=== PATIENT | female | born 1955 | race Caucasian/White ===

== ENCOUNTER 2017-10-28 12:40 | Outpatient (CLI) | payer MEDICAID, SELFPAY ==
[2017-10-28 13:23] LABS: Abs Immature Grans 0.03 k/cumm (0.0-0.09); Absolute Basophil Count 0.01 k/cumm (0.0-0.2); Absolute Lymphocyte Count 0.26 k/cumm (1.2-3.4); Absolute Monocyte Count 0.09 k/cumm (0.11-0.7); Absolute Neutrophil Count 5.38 k/cumm (1.2-6.7); Basophils % 0.2; HCT 40.6 % (36.0-46.0); HGB 12.9 g/dL (12.0-15.5); Immature Grans % 0.5; Lymphocytes % 4.5; Mean Corp. HGB Concentration 31.8 g/dL (32.0-36.0); Mean Corpuscular Hemoglobin 31.9 pg (27.0-33.0); Mean Corpuscular Volume 100.5 fL (80-95); Mean Platelet Volume 9.2 fL (8.0-11.0); Monocytes % 1.6; Neutrophils % 93.2; Platelet Count 137 x1000/uL (130-400); RBC 4.04 m/cumm (4.00-5.20); RBC Distribution Width 15.5 % (11.7-14.6); White Blood Cell Count 5.77 k/cumm (4.4-10.8)
[2017-10-28 13:36] LABS: ALT 42 U/L (12-78); AST 17 U/L (15-37); Albumin 3.7 g/dL (3.4-5.0); Alkaline Phosphatase 99 U/L (46-116); Anion Gap 5.5 mmol/L (3-11); BUN 17 mg/dL (7-18); Bilirubin, Total 0.6 mg/dL (0.2-1.0); CO2 28.5 mmol/L (21.0-32.0); CREATININE 0.82 mg/dL (0.55-1.02); Calcium 9.2 mg/dL (8.5-10.1); Chloride 104 mmol/L (98-107); Glucose 154 mg/dL (70-100); LDH 167 U/L (81-234); Potassium 4.3 mmol/L (3.5-5.1); Sodium 138 mmol/L (136-145); Total Protein 6.9 g/dL (6.4-8.2)
== END 2017-10-28 12:41 ==
PROVIDERS: PCP Family Medicine; Visit Provider Internal Medicine Hematology & Oncology
DX: D59.5 Paroxysmal nocturnal hemoglobinuria [Marchiafava-Micheli] (principal); M17.10 Unilateral primary osteoarthritis, unspecified knee
CPT/HCPCS: 36415; 80053; 83615; 85025; 85045

== ENCOUNTER 2017-11-25 12:35 | Outpatient (CLI) | payer MEDICAID, SELFPAY ==
[2017-11-25 13:23] LABS: Abs Immature Grans 0.03 k/cumm (0.0-0.09); Absolute Basophil Count 0.02 k/cumm (0.0-0.2); Absolute Eosinophil Count 0.01 k/cumm (0.0-0.7); Absolute Lymphocyte Count 0.33 k/cumm (1.2-3.4); Absolute Monocyte Count 0.24 k/cumm (0.11-0.7); Absolute Neutrophil Count 6.49 k/cumm (1.2-6.7); Basophils % 0.3; Eosinophils % 0.1; HCT 39.1 % (36.0-46.0); Immature Grans % 0.4; Lymphocytes % 4.6; Mean Corp. HGB Concentration 33.2 g/dL (32.0-36.0); Mean Corpuscular Hemoglobin 33.7 pg (27.0-33.0); Mean Corpuscular Volume 101.3 fL (80-95); Monocytes % 3.4; Neutrophils % 91.2; Platelet Count 124 x1000/uL (130-400); RBC 3.86 m/cumm (4.00-5.20); RBC Distribution Width 15.9 % (11.7-14.6); Reticulocyte 2.8 % (0.5-2.4); White Blood Cell Count 7.12 k/cumm (4.4-10.8)
[2017-11-25 13:31] LABS: ALT 22 U/L (12-78); AST 15 U/L (15-37); Albumin 3.7 g/dL (3.4-5.0); Alkaline Phosphatase 88 U/L (46-116); BUN 15 mg/dL (7-18); Bilirubin, Total 0.9 mg/dL (0.2-1.0); CREATININE 0.87 mg/dL (0.55-1.02); Calcium 9.2 mg/dL (8.5-10.1); Chloride 103 mmol/L (98-107); Glucose 167 mg/dL (70-100); LDH 249 U/L (81-234); Potassium 4.1 mmol/L (3.5-5.1); Sodium 140 mmol/L (136-145); Total Protein 6.9 g/dL (6.4-8.2)
[2017-11-25 14:32] LABS: Magnesium 1.9 mg/dL (1.8-2.4)
== END 2017-11-25 12:55 ==
PROVIDERS: PCP Family Medicine; Visit Provider Internal Medicine Hematology & Oncology
DX: D59.5 Paroxysmal nocturnal hemoglobinuria [Marchiafava-Micheli] (principal); M17.10 Unilateral primary osteoarthritis, unspecified knee
CPT/HCPCS: 36415; 80053; 83615; 83735; 85025; 85045

== ENCOUNTER 2018-01-06 12:32 | Outpatient (CLI) | payer MEDICAID, SELFPAY ==
[2018-01-06 13:10] LABS: Abs Immature Grans 0.01 k/cumm (0.0-0.09); Absolute Basophil Count 0.01 k/cumm (0.0-0.2); Absolute Eosinophil Count 0.01 k/cumm (0.0-0.7); Absolute Lymphocyte Count 0.51 k/cumm (1.2-3.4); Absolute Monocyte Count 0.12 k/cumm (0.11-0.7); Absolute Neutrophil Count 3.14 k/cumm (1.2-6.7); Basophils % 0.3; Eosinophils % 0.3; HCT 39.5 % (36.0-46.0); HGB 12.6 g/dL (12.0-15.5); Immature Grans % 0.3; Lymphocytes % 13.4; Mean Corp. HGB Concentration 31.9 g/dL (32.0-36.0); Mean Corpuscular Hemoglobin 34.7 pg (27.0-33.0); Mean Corpuscular Volume 108.8 fL (80-95); Mean Platelet Volume 9.6 fL (8.0-11.0); Monocytes % 3.2; Neutrophils % 82.5; RBC 3.63 m/cumm (4.00-5.20); RBC Distribution Width 17.8 % (11.7-14.6); Reticulocyte 5.3 % (0.5-2.4)
[2018-01-06 13:11] LABS: ALT 38 U/L (12-78); AST 15 U/L (15-37); Albumin 3.6 g/dL (3.4-5.0); Alkaline Phosphatase 135 U/L (46-116); Anion Gap 9.3 mmol/L (3-11); BUN 14 mg/dL (7-18); Bilirubin, Total 0.8 mg/dL (0.2-1.0); CO2 28.7 mmol/L (21.0-32.0); CREATININE 0.99 mg/dL (0.55-1.02); Calcium 9.6 mg/dL (8.5-10.1); Chloride 103 mmol/L (98-107); Estimated GFR 56.84 (mL/min/1.73m2); Glucose 128 mg/dL (70-100); LDH 293 U/L (81-234); Potassium 3.3 mmol/L (3.5-5.1); Sodium 141 mmol/L (136-145); Total Protein 7.1 g/dL (6.4-8.2)
[2018-01-06 13:28] LABS: Platelet Count 86 x1000/uL (130-400)
[2018-01-06 13:29] LABS: Diff Comment Diff Reviewed; Macrocytosis 2+; Polychromasia Present
== END 2018-01-06 12:52 ==
PROVIDERS: PCP Family Medicine; Visit Provider Internal Medicine Hematology & Oncology
DX: D59.5 Paroxysmal nocturnal hemoglobinuria [Marchiafava-Micheli] (principal); M17.10 Unilateral primary osteoarthritis, unspecified knee
CPT/HCPCS: 80053; 83615; 85025; 85045

== ENCOUNTER 2018-01-20 00:56 | Outpatient (CLI) | payer MEDICAID, SELFPAY ==
--- NOTE | 2018-01-20 13:00 | DI.DEXA_ITS ---
SYMPTOMS/DIAGNOSIS: ALF USE OF SYSTEMS STEROID, Z79.52, H/O BROKEN WRIST DEXA SCAN: DEXA scan was performed according to the usual protocol. Mild T 12 anterior compression fracture noted as seen on previous lateral scanogram of 06/03/12 and minimal wedging of T 11 may be present as well, this is a questionable finding. Left hip scanning shows T score -1.7 with left femoral neck T score -1.7 as well. The previous examination of May 2012 showed left hip T score 0. Lumbar spine T score is -1.2, compared to +1.0 in May 2012. Right forearm scanning shows T score 1.5, previous examination of 2012 showed forearm T score 2.6. CONCLUSION: Findings consistent with osteopenia. Essentially unchanged T 12 vertebral compression fracture. Question minimal new T 11 compression fracture.
== END 2018-01-20 01:16 ==
PROVIDERS: PCP Family Medicine; Visit Provider Internal Medicine
DX: M85.88 Other specified disorders of bone density and structure, other site (principal); Z79.52 Long term (current) use of systemic steroids; M48.54XD Collapsed vertebra, not elsewhere classified, thoracic region, subsequent encounter for fracture with routine healing
CPT/HCPCS: 77080

== ENCOUNTER 2018-03-17 12:52 | Outpatient (CLI) | payer MEDICAID, SELFPAY ==
[2018-03-17 13:22] LABS: Abs Immature Grans 0.01 k/cumm (0.0-0.09); Absolute Basophil Count 0.02 k/cumm (0.0-0.2); Absolute Lymphocyte Count 0.36 k/cumm (1.2-3.4); Absolute Neutrophil Count 4.59 k/cumm (1.2-6.7); Basophils % 0.4; HCT 41.8 % (36.0-46.0); HGB 13.4 g/dL (12.0-15.5); Immature Grans % 0.2; Lymphocytes % 6.9; Mean Corp. HGB Concentration 32.1 g/dL (32.0-36.0); Mean Corpuscular Hemoglobin 33.4 pg (27.0-33.0); Mean Corpuscular Volume 104.2 fL (80-95); Mean Platelet Volume 9.3 fL (8.0-11.0); Monocytes % 3.9; Neutrophils % 88.6; Platelet Count 103 x1000/uL (130-400); RBC 4.01 m/cumm (4.00-5.20); RBC Distribution Width 12.7 % (11.7-14.6); Reticulocyte 2.2 % (0.5-2.4); White Blood Cell Count 5.18 k/cumm (4.4-10.8)
[2018-03-17 13:34] LABS: ALT 26 U/L (12-78); AST 21 U/L (15-37); Alkaline Phosphatase 71 U/L (46-116); Anion Gap 7.1 mmol/L (3-11); BUN 12 mg/dL (7-18); CO2 29.9 mmol/L (21.0-32.0); CREATININE 1.12 mg/dL (0.55-1.02); Calcium 9.8 mg/dL (8.5-10.1); Chloride 102 mmol/L (98-107); Estimated GFR 49.29 (mL/min/1.73m2); Glucose 171 mg/dL (70-100); LDH 256 U/L (81-234); Potassium 3.8 mmol/L (3.5-5.1); Sodium 139 mmol/L (136-145); Total Protein 7.2 g/dL (6.4-8.2)
== END 2018-03-17 13:12 ==
PROVIDERS: PCP Family Medicine; Visit Provider Internal Medicine Hematology & Oncology
DX: D59.5 Paroxysmal nocturnal hemoglobinuria [Marchiafava-Micheli] (principal); M17.10 Unilateral primary osteoarthritis, unspecified knee
CPT/HCPCS: 80053; 83615; 85025; 85045

== ENCOUNTER 2018-04-14 12:39 | Outpatient (CLI) | payer MEDICAID, SELFPAY ==
[2018-04-14 13:13] LABS: Abs Immature Grans 0.02 k/cumm (0.0-0.09); Absolute Basophil Count 0.02 k/cumm (0.0-0.2); Absolute Eosinophil Count 0.01 k/cumm (0.0-0.7); Absolute Lymphocyte Count 0.47 k/cumm (1.2-3.4); Absolute Monocyte Count 0.32 k/cumm (0.11-0.7); Absolute Neutrophil Count 5.03 k/cumm (1.2-6.7); Basophils % 0.3; Eosinophils % 0.2; HCT 41.1 % (36.0-46.0); HGB 13.1 g/dL (12.0-15.5); Immature Grans % 0.3; Mean Corp. HGB Concentration 31.9 g/dL (32.0-36.0); Mean Corpuscular Volume 103.5 fL (80-95); Mean Platelet Volume 9.3 fL (8.0-11.0); Monocytes % 5.5; Neutrophils % 85.7; Platelet Count 130 x1000/uL (130-400); RBC 3.97 m/cumm (4.00-5.20); RBC Distribution Width 12.9 % (11.7-14.6); Reticulocyte 2.1 % (0.5-2.4); White Blood Cell Count 5.87 k/cumm (4.4-10.8)
[2018-04-14 13:21] LABS: ALT 23 U/L (12-78); AST 21 U/L (15-37); Albumin 3.9 g/dL (3.4-5.0); Alkaline Phosphatase 77 U/L (46-116); Anion Gap 6.1 mmol/L (3-11); BUN 12 mg/dL (7-18); CO2 30.9 mmol/L (21.0-32.0); CREATININE 0.89 mg/dL (0.55-1.02); Calcium 9.6 mg/dL (8.5-10.1); Chloride 103 mmol/L (98-107); Glucose 104 mg/dL (70-100); LDH 228 U/L (81-234); Potassium 3.9 mmol/L (3.5-5.1); Sodium 140 mmol/L (136-145); Total Protein 7.3 g/dL (6.4-8.2)
== END 2018-04-14 12:59 ==
PROVIDERS: PCP Family Medicine; Visit Provider Internal Medicine Hematology & Oncology
DX: D59.5 Paroxysmal nocturnal hemoglobinuria [Marchiafava-Micheli] (principal); M17.10 Unilateral primary osteoarthritis, unspecified knee
CPT/HCPCS: 36415; 80053; 83615; 85025; 85045

== ENCOUNTER 2018-05-12 12:42 | Outpatient (CLI) | payer MEDICAID, SELFPAY ==
[2018-05-12 13:02] LABS: Abs Immature Grans 0.01 k/cumm (0.0-0.09); Absolute Basophil Count 0.03 k/cumm (0.0-0.2); Absolute Eosinophil Count 0.01 k/cumm (0.0-0.7); Absolute Lymphocyte Count 0.63 k/cumm (1.2-3.4); Absolute Monocyte Count 0.27 k/cumm (0.11-0.7); Absolute Neutrophil Count 5.08 k/cumm (1.2-6.7); Basophils % 0.5; Eosinophils % 0.2; HCT 41.2 % (36.0-46.0); HGB 13.1 g/dL (12.0-15.5); Immature Grans % 0.2; Lymphocytes % 10.4; Mean Corp. HGB Concentration 31.8 g/dL (32.0-36.0); Mean Corpuscular Hemoglobin 32.8 pg (27.0-33.0); Mean Platelet Volume 9.2 fL (8.0-11.0); Monocytes % 4.5; Neutrophils % 84.2; Platelet Count 126 x1000/uL (130-400); RBC Distribution Width 13.6 % (11.7-14.6); Reticulocyte 2.4 % (0.5-2.4); White Blood Cell Count 6.03 k/cumm (4.4-10.8)
[2018-05-12 13:12] LABS: ALT 21 U/L (12-78); AST 16 U/L (15-37); Albumin 4.2 g/dL (3.4-5.0); Alkaline Phosphatase 80 U/L (46-116); Anion Gap 8.6 mmol/L (3-11); BUN 17 mg/dL (7-18); Bilirubin, Total 0.8 mg/dL (0.2-1.0); CO2 29.4 mmol/L (21.0-32.0); CREATININE 0.88 mg/dL (0.55-1.02); Calcium 9.7 mg/dL (8.5-10.1); Chloride 104 mmol/L (98-107); Glucose 112 mg/dL (70-100); LDH 202 U/L (81-234); Potassium 4.1 mmol/L (3.5-5.1); Sodium 142 mmol/L (136-145); Total Protein 7.3 g/dL (6.4-8.2)
== END 2018-05-12 13:02 ==
PROVIDERS: PCP Family Medicine; Visit Provider Internal Medicine Hematology & Oncology
DX: D59.5 Paroxysmal nocturnal hemoglobinuria [Marchiafava-Micheli] (principal); M17.10 Unilateral primary osteoarthritis, unspecified knee
CPT/HCPCS: 36415; 80053; 83615; 85025; 85045

== ENCOUNTER 2018-06-09 12:38 | Outpatient (CLI) | payer MEDICAID, SELFPAY ==
[2018-06-09 13:43] LABS: ALT 24 U/L (12-78); AST 14 U/L (15-37); Albumin 4.2 g/dL (3.4-5.0); Alkaline Phosphatase 92 U/L (46-116); Anion Gap 10.2 mmol/L (3-11); BUN 14 mg/dL (7-18); Bilirubin, Total 0.7 mg/dL (0.2-1.0); CO2 26.8 mmol/L (21.0-32.0); CREATININE 0.85 mg/dL (0.55-1.02); Calcium 9.9 mg/dL (8.5-10.1); Chloride 104 mmol/L (98-107); Glucose 108 mg/dL (70-100); LDH 242 U/L (81-234); Magnesium 1.8 mg/dL (1.8-2.4); Potassium 4.1 mmol/L (3.5-5.1); Sodium 141 mmol/L (136-145); Total Protein 7.4 g/dL (6.4-8.2)
[2018-06-09 13:49] LABS: Abs Immature Grans 0.01 k/cumm (0.0-0.09); Absolute Basophil Count 0.01 k/cumm (0.0-0.2); Absolute Eosinophil Count 0.01 k/cumm (0.0-0.7); Absolute Lymphocyte Count 0.36 k/cumm (1.2-3.4); Absolute Monocyte Count 0.27 k/cumm (0.11-0.7); Absolute Neutrophil Count 4.89 k/cumm (1.2-6.7); Basophils % 0.2; Eosinophils % 0.2; HCT 39.6 % (36.0-46.0); HGB 12.6 g/dL (12.0-15.5); Immature Grans % 0.2; Lymphocytes % 6.5; Mean Corp. HGB Concentration 31.8 g/dL (32.0-36.0); Mean Corpuscular Hemoglobin 32.8 pg (27.0-33.0); Mean Corpuscular Volume 103.1 fL (80-95); Mean Platelet Volume 9.6 fL (8.0-11.0); Monocytes % 4.9; Platelet Count 135 x1000/uL (130-400); RBC 3.84 m/cumm (4.00-5.20); RBC Distribution Width 13.7 % (11.7-14.6); Reticulocyte 2.6 % (0.5-2.4); White Blood Cell Count 5.55 k/cumm (4.4-10.8)
== END 2018-06-09 12:58 ==
PROVIDERS: PCP Family Medicine; Visit Provider Internal Medicine Hematology & Oncology
DX: D59.5 Paroxysmal nocturnal hemoglobinuria [Marchiafava-Micheli] (principal); M17.10 Unilateral primary osteoarthritis, unspecified knee
CPT/HCPCS: 36415; 80053; 88184; 88185; 88188; 83615; 83735; 85025; 85045

== ENCOUNTER 2018-07-07 12:39 | Outpatient (CLI) | payer MEDICAID, SELFPAY ==
[2018-07-07 13:31] LABS: Abs Immature Grans 0.01 k/cumm (0.0-0.09); Absolute Basophil Count 0.02 k/cumm (0.0-0.2); Absolute Lymphocyte Count 0.45 k/cumm (1.2-3.4); Absolute Monocyte Count 0.28 k/cumm (0.11-0.7); Absolute Neutrophil Count 5.25 k/cumm (1.2-6.7); Basophils % 0.3; HCT 39.7 % (36.0-46.0); HGB 13.1 g/dL (12.0-15.5); Immature Grans % 0.2; Lymphocytes % 7.5; Mean Corpuscular Hemoglobin 33.2 pg (27.0-33.0); Mean Corpuscular Volume 100.8 fL (80-95); Mean Platelet Volume 9.3 fL (8.0-11.0); Monocytes % 4.7; Neutrophils % 87.3; Platelet Count 132 x1000/uL (130-400); RBC 3.94 m/cumm (4.00-5.20); RBC Distribution Width 13.4 % (11.7-14.6); Reticulocyte 2.6 % (0.5-2.4); White Blood Cell Count 6.01 k/cumm (4.4-10.8)
[2018-07-07 13:44] LABS: ALT 27 U/L (12-78); AST 17 U/L (15-37); Albumin 3.9 g/dL (3.4-5.0); Alkaline Phosphatase 92 U/L (46-116); Anion Gap 7.4 mmol/L (3-11); BUN 15 mg/dL (7-18); Bilirubin, Total 0.7 mg/dL (0.2-1.0); CO2 28.6 mmol/L (21.0-32.0); CREATININE 1.01 mg/dL (0.55-1.02); Calcium 9.5 mg/dL (8.5-10.1); Chloride 104 mmol/L (98-107); Estimated GFR 55.54 (mL/min/1.73m2); Glucose 105 mg/dL (70-100); LDH 198 U/L (81-234); Potassium 4.1 mmol/L (3.5-5.1); Sodium 140 mmol/L (136-145)
== END 2018-07-07 12:59 ==
PROVIDERS: PCP Family Medicine; Visit Provider Internal Medicine Hematology & Oncology
DX: D59.5 Paroxysmal nocturnal hemoglobinuria [Marchiafava-Micheli] (principal); M17.10 Unilateral primary osteoarthritis, unspecified knee
CPT/HCPCS: 80053; 88184; 88185; 88188; 83615; 83735; 85025; 85045

== ENCOUNTER 2018-08-18 12:27 | Outpatient (CLI) | payer MEDICAID, SELFPAY ==
[2018-08-18 12:46] LABS: Abs Immature Grans 0.02 k/cumm (0.0-0.09); Absolute Basophil Count 0.01 k/cumm (0.0-0.2); Absolute Eosinophil Count 0.01 k/cumm (0.0-0.7); Absolute Lymphocyte Count 0.56 k/cumm (1.2-3.4); Absolute Monocyte Count 0.33 k/cumm (0.11-0.7); Absolute Neutrophil Count 5.69 k/cumm (1.2-6.7); Basophils % 0.2; Eosinophils % 0.2; HGB 13.6 g/dL (12.0-15.5); Immature Grans % 0.3; Lymphocytes % 8.5; Mean Corp. HGB Concentration 32.4 g/dL (32.0-36.0); Mean Corpuscular Hemoglobin 33.3 pg (27.0-33.0); Mean Corpuscular Volume 102.7 fL (80-95); Mean Platelet Volume 8.9 fL (8.0-11.0); Neutrophils % 85.8; Platelet Count 137 x1000/uL (130-400); RBC 4.09 m/cumm (4.00-5.20); RBC Distribution Width 13.8 % (11.7-14.6); White Blood Cell Count 6.62 k/cumm (4.4-10.8)
[2018-08-18 13:00] LABS: ALT 33 U/L (12-78); AST 19 U/L (15-37); Albumin 3.8 g/dL (3.4-5.0); Alkaline Phosphatase 101 U/L (46-116); Anion Gap 8.1 mmol/L (3-11); BUN 13 mg/dL (7-18); Bilirubin, Total 0.7 mg/dL (0.2-1.0); CO2 29.9 mmol/L (21.0-32.0); CREATININE 0.93 mg/dL (0.55-1.02); Calcium 9.7 mg/dL (8.5-10.1); Chloride 102 mmol/L (98-107); Glucose 115 mg/dL (70-100); LDH 204 U/L (81-234); Potassium 4.2 mmol/L (3.5-5.1); Sodium 140 mmol/L (136-145); Total Protein 7.3 g/dL (6.4-8.2)
== END 2018-08-18 12:47 ==
PROVIDERS: PCP Family Medicine; Visit Provider Internal Medicine Hematology & Oncology
DX: D59.5 Paroxysmal nocturnal hemoglobinuria [Marchiafava-Micheli] (principal)
CPT/HCPCS: 36415; 80053; 83615; 85025

== ENCOUNTER 2018-09-15 12:29 | Outpatient (CLI) | payer MEDICAID, SELFPAY ==
[2018-09-15 13:02] LABS: Abs Immature Grans 0.02 k/cumm (0.0-0.09); Absolute Basophil Count 0.04 k/cumm (0.0-0.2); Absolute Eosinophil Count 0.03 k/cumm (0.0-0.7); Absolute Lymphocyte Count 0.62 k/cumm (1.2-3.4); Absolute Monocyte Count 0.33 k/cumm (0.11-0.7); Absolute Neutrophil Count 8.08 k/cumm (1.2-6.7); Basophils % 0.4; Eosinophils % 0.3; HCT 40.7 % (36.0-46.0); HGB 13.3 g/dL (12.0-15.5); Immature Grans % 0.2; Lymphocytes % 6.8; Mean Corp. HGB Concentration 32.7 g/dL (32.0-36.0); Mean Corpuscular Hemoglobin 33.8 pg (27.0-33.0); Mean Corpuscular Volume 103.3 fL (80-95); Mean Platelet Volume 9.4 fL (8.0-11.0); Monocytes % 3.6; Neutrophils % 88.7; Platelet Count 138 x1000/uL (130-400); RBC 3.94 m/cumm (4.00-5.20); RBC Distribution Width 13.9 % (11.7-14.6); White Blood Cell Count 9.12 k/cumm (4.4-10.8)
[2018-09-15 14:00] LABS: ALT 23 U/L (12-78); AST 13 U/L (15-37); Albumin 4.1 g/dL (3.4-5.0); Alkaline Phosphatase 132 U/L (46-116); Anion Gap 9.9 mmol/L (3-11); BUN 12 mg/dL (7-18); Bilirubin, Total 0.8 mg/dL (0.2-1.0); CO2 27.1 mmol/L (21.0-32.0); CREATININE 0.86 mg/dL (0.55-1.02); Chloride 106 mmol/L (98-107); Glucose 107 mg/dL (70-100); LDH 241 U/L (81-234); Magnesium 1.9 mg/dL (1.8-2.4); Sodium 143 mmol/L (136-145); Total Protein 7.2 g/dL (6.4-8.2)
== END 2018-09-15 12:49 ==
PROVIDERS: PCP Family Medicine; Visit Provider Internal Medicine Hematology & Oncology
DX: D59.5 Paroxysmal nocturnal hemoglobinuria [Marchiafava-Micheli] (principal)
CPT/HCPCS: 36415; 80053; 83615; 83735; 85025

== ENCOUNTER 2018-11-10 12:29 | Outpatient (CLI) | payer MEDICAID, SELFPAY ==
[2018-11-10 13:02] LABS: Abs Immature Grans 0.02 k/cumm (0.0-0.09); Absolute Basophil Count 0.02 k/cumm (0.0-0.2); Absolute Eosinophil Count 0.01 k/cumm (0.0-0.7); Absolute Lymphocyte Count 0.53 k/cumm (1.2-3.4); Absolute Monocyte Count 0.36 k/cumm (0.11-0.7); Absolute Neutrophil Count 5.29 k/cumm (1.2-6.7); Basophils % 0.3; Eosinophils % 0.2; HCT 40.3 % (36.0-46.0); HGB 13.3 g/dL (12.0-15.5); Immature Grans % 0.3; Lymphocytes % 8.5; Mean Corpuscular Hemoglobin 34.2 pg (27.0-33.0); Mean Corpuscular Volume 103.6 fL (80-95); Mean Platelet Volume 9.4 fL (8.0-11.0); Monocytes % 5.8; Neutrophils % 84.9; Platelet Count 136 x1000/uL (130-400); RBC 3.89 m/cumm (4.00-5.20); RBC Distribution Width 14.6 % (11.7-14.6); White Blood Cell Count 6.23 k/cumm (4.4-10.8)
[2018-11-10 13:18] LABS: ALT 33 U/L (14-59); AST 18 U/L (15-37); Alkaline Phosphatase 86 U/L (46-116); Anion Gap 8.5 mmol/L (3-11); BUN 18 mg/dL (7-18); Bilirubin, Total 0.8 mg/dL (0.2-1.0); CO2 29.5 mmol/L (21.0-32.0); CREATININE 0.96 mg/dL (0.55-1.02); Calcium 9.7 mg/dL (8.5-10.1); Chloride 105 mmol/L (98-107); Estimated GFR 58.89 (mL/min/1.73m2); Glucose 113 mg/dL (70-100); LDH 240 U/L (81-234); Magnesium 1.9 mg/dL (1.8-2.4); Sodium 143 mmol/L (136-145); Total Protein 7.4 g/dL (6.4-8.2)
[2018-11-29 12:15] LABS: PNH RBC-Complete Ag Loss 29.86 % (0.00-0.01); PNH RBC-Partial Ag Loss 1.25 % (0.00-0.99)
== END 2018-11-10 12:49 ==
PROVIDERS: PCP Family Medicine; Visit Provider Internal Medicine Hematology & Oncology
DX: D59.5 Paroxysmal nocturnal hemoglobinuria [Marchiafava-Micheli] (principal)
CPT/HCPCS: 36415; 80053; 88184; 88185; 88188; 83615; 83735; 85025

== ENCOUNTER 2019-01-05 12:24 | Outpatient (CLI) | payer MEDICAID, SELFPAY ==
[2019-01-05 12:55] LABS: Abs Immature Grans 0.02 k/cumm (0.0-0.09); Absolute Basophil Count 0.02 k/cumm (0.0-0.2); Absolute Eosinophil Count 0.01 k/cumm (0.0-0.7); Absolute Lymphocyte Count 0.62 k/cumm (1.2-3.4); Absolute Monocyte Count 0.26 k/cumm (0.11-0.7); Absolute Neutrophil Count 5.33 k/cumm (1.2-6.7); Basophils % 0.3; Eosinophils % 0.2; HCT 39.6 % (36.0-46.0); HGB 13.5 g/dL (12.0-15.5); Immature Grans % 0.3; Lymphocytes % 9.9; Mean Corp. HGB Concentration 34.1 g/dL (32.0-36.0); Mean Corpuscular Hemoglobin 34.9 pg (27.0-33.0); Mean Corpuscular Volume 102.3 fL (80-95); Mean Platelet Volume 9.3 fL (8.0-11.0); Monocytes % 4.2; Neutrophils % 85.1; Platelet Count 143 x1000/uL (130-400); RBC 3.87 m/cumm (4.00-5.20); RBC Distribution Width 13.1 % (11.7-14.6); White Blood Cell Count 6.26 k/cumm (4.4-10.8)
[2019-01-05 13:08] LABS: ALT 30 U/L (14-59); AST 19 U/L (15-37); Albumin 4.2 g/dL (3.4-5.0); Alkaline Phosphatase 75 U/L (46-116); Anion Gap 7.8 mmol/L (3-11); BUN 20 mg/dL (7-18); Bilirubin, Total 0.7 mg/dL (0.2-1.0); CO2 28.2 mmol/L (21.0-32.0); Calcium 9.6 mg/dL (8.5-10.1); Chloride 105 mmol/L (98-107); Glucose 104 mg/dL (70-100); LDH 245 U/L (81-234); Magnesium 1.9 mg/dL (1.8-2.4); Potassium 3.8 mmol/L (3.5-5.1); Sodium 141 mmol/L (136-145); Total Protein 7.2 g/dL (6.4-8.2)
[2019-01-08 12:59] LABS: PNH RBC-Complete Ag Loss 30.01 % (0.00-0.01)
== END 2019-01-05 12:44 ==
PROVIDERS: PCP Family Medicine; Visit Provider Internal Medicine Hematology & Oncology
DX: D59.5 Paroxysmal nocturnal hemoglobinuria [Marchiafava-Micheli] (principal)
CPT/HCPCS: 36415; 80053; 88184; 88185; 88188; 83615; 83735; 85025; 88189

== ENCOUNTER 2019-03-10 12:30 | Outpatient (CLI) | payer MEDICAID, SELFPAY ==
[2019-03-10 13:27] LABS: Abs Immature Grans 0.03 k/cumm (0.0-0.09); Absolute Basophil Count 0.02 k/cumm (0.0-0.2); Absolute Eosinophil Count 0.01 k/cumm (0.0-0.7); Absolute Lymphocyte Count 0.64 k/cumm (1.2-3.4); Absolute Monocyte Count 0.36 k/cumm (0.11-0.7); Absolute Neutrophil Count 5.64 k/cumm (1.2-6.7); Basophils % 0.3; Eosinophils % 0.1; HCT 41.3 % (36.0-46.0); HGB 13.1 g/dL (12.0-15.5); Immature Grans % 0.4 %; Lymphocytes % 9.6; Mean Corp. HGB Concentration 31.7 g/dL (32.0-36.0); Mean Corpuscular Hemoglobin 33.5 pg (27.0-33.0); Mean Corpuscular Volume 105.6 fL (80-95); Mean Platelet Volume 9.6 fL (8.0-11.0); Monocytes % 5.4; Neutrophils % 84.2; Platelet Count 138 x1000/uL (130-400); RBC 3.91 m/cumm (4.00-5.20); RBC Distribution Width 14.2 % (11.7-14.6)
[2019-03-10 14:27] LABS: ALT 26 U/L (14-59); AST 21 U/L (15-37); Albumin 4.3 g/dL (3.4-5.0); Alkaline Phosphatase 81 U/L (46-116); Anion Gap 11.7 mmol/L (3-11); BUN 16 mg/dL (7-18); Bilirubin, Total 0.7 mg/dL (0.2-1.0); CO2 26.3 mmol/L (21.0-32.0); CREATININE 0.85 mg/dL (0.55-1.02); Calcium 9.5 mg/dL (8.5-10.1); Chloride 106 mmol/L (98-107); Glucose 85 mg/dL (74-106); LDH 311 U/L (81-234); Potassium 3.8 mmol/L (3.5-5.1); Sodium 144 mmol/L (136-145); Total Protein 7.2 g/dL (6.4-8.2)
[2019-03-14 11:40] LABS: PNH RBC-Complete Ag Loss 29.35 % (0.00-0.01); PNH RBC-Partial Ag Loss 0.96 % (0.00-0.99)
== END 2019-03-10 12:50 ==
PROVIDERS: PCP Family Medicine; Visit Provider Internal Medicine Hematology & Oncology
DX: D59.5 Paroxysmal nocturnal hemoglobinuria [Marchiafava-Micheli] (principal)
CPT/HCPCS: 36415; 80053; 88184; 88185; 88188; 83615; 83735; 85025

== ENCOUNTER 2019-06-29 12:18 | Outpatient (RCR) | payer MEDICAID, SELFPAY ==
[2019-06-29 13:27] LABS: Abs Immature Grans 0.01 k/cumm (0.0-0.09); Absolute Basophil Count 0.02 k/cumm (0.0-0.2); Absolute Eosinophil Count 0.06 k/cumm (0.0-0.7); Absolute Lymphocyte Count 0.88 k/cumm (1.2-3.4); Absolute Monocyte Count 0.73 k/cumm (0.11-0.7); Absolute Neutrophil Count 5.71 k/cumm (1.2-6.7); Basophils % 0.3; Eosinophils % 0.8; HCT 41.2 % (36.0-46.0); HGB 13.1 g/dL (12.0-15.5); Immature Grans % 0.1 %; Lymphocytes % 11.9; Mean Corp. HGB Concentration 31.8 g/dL (32.0-36.0); Mean Corpuscular Hemoglobin 33.2 pg (27.0-33.0); Mean Corpuscular Volume 104.6 fL (80-95); Mean Platelet Volume 9.6 fL (8.0-11.0); Monocytes % 9.9; Platelet Count 149 x1000/uL (130-400); RBC 3.94 m/cumm (4.00-5.20); RBC Distribution Width 13.8 % (11.7-14.6); White Blood Cell Count 7.41 k/cumm (4.4-10.8)
[2019-06-29 13:51] LABS: ALT 28 U/L (14-59); AST 24 U/L (15-37); Alkaline Phosphatase 75 U/L (46-116); Anion Gap 6.7 mmol/L (3-11); BUN 20 mg/dL (7-18); Bilirubin, Total 0.8 mg/dL (0.2-1.0); CO2 29.3 mmol/L (21.0-32.0); CREATININE 0.87 mg/dL (0.55-1.02); Calcium 9.3 mg/dL (8.5-10.1); Chloride 106 mmol/L (98-107); Glucose 92 mg/dL (74-106); LDH 314 U/L (81-234); Potassium 3.7 mmol/L (3.5-5.1); Sodium 142 mmol/L (136-145); Total Protein 7.3 g/dL (6.4-8.2)
== END 2019-07-07 23:59 | disposition home or self-care (01) ==
LOC: INF 12:18
PROVIDERS: PCP Family Medicine; Visit Provider Internal Medicine Hematology & Oncology
DX: D59.3 Hemolytic-uremic syndrome (principal)
CPT/HCPCS: 36415; 36430; 80053; 83615; 85025; 85045

== ENCOUNTER 2019-10-19 13:49 | Outpatient (RCR) | payer MEDICAID, SELFPAY ==
[2019-10-19] MEDS: Normal Saline Flush 10 ML SYR 30 ML IVP (14:00)
[2019-10-19 14:09] LABS: Abs Immature Grans 0.03 10^3/uL (0.0-0.06); Absolute Basophil Count 0.04 10^3/uL (0.0-0.2); Absolute Eosinophil Count 0.01 10^3/uL (0.0-0.7); Absolute Lymphocyte Count 0.83 10^3/uL (1.2-3.4); Absolute Monocyte Count 0.35 10^3/uL (0.1-0.8); Absolute Neutrophil Count 4.57 10^3/uL (1.2-6.7); Basophils % 0.7; Eosinophils % 0.2; HCT 42.3 % (36.0-46.0); HGB 13.4 g/dL (11.2-15.7); Immature Grans % 0.5; Lymphocytes % 14.2; MCH 33.2 pg (27.0-33.0); MCHC 31.7 % (32.0-36.0); MCV 104.7 fL (80-95); MPV 9.7 fL (8.0-11.0); Neutrophils % 78.4; Nucleated RBC 0 %; Platelet Count 146 10^3/uL (130-400); RBC 4.04 10^6/uL (3.93-5.22); RDW 14.4 % (11.7-14.6); RDW-SD 56.1 fL; Reticulocyte 3.2 % (0.5-2.4); WBC 5.83 10^3/uL (4.4-10.8)
[2019-10-19 14:23] LABS: ALT 29 U/L (14-59); AST 20 U/L (15-37); Albumin 4.6 g/dL (3.4-5.0); Alkaline Phosphatase 85 U/L (46-116); Anion Gap 6.7 mmol/L (3-11); BUN 15 mg/dL (7-18); Bilirubin, Total 0.9 mg/dL (0.2-1.0); CO2 29.3 mmol/L (21.0-32.0); CREATININE 0.91 mg/dL (0.55-1.02); Calcium 10.1 mg/dL (8.5-10.1); Chloride 104 mmol/L (98-107); Glucose 102 mg/dL (74-106); LDH 252 U/L (81-234); Potassium 3.8 mmol/L (3.5-5.1); Sodium 140 mmol/L (136-145); Total Protein 8.1 g/dL (6.4-8.2)
== END 2019-11-07 23:59 | disposition home or self-care (01) ==
LOC: INF 13:49
PROVIDERS: PCP Family Medicine; Visit Provider Internal Medicine Hematology & Oncology
DX: D59.5 Paroxysmal nocturnal hemoglobinuria [Marchiafava-Micheli] (principal)
CPT/HCPCS: 36415; 80053; 83615; 85025; 85045

== ENCOUNTER 2020-01-06 12:01 | Emergency (ER) | payer MEDICAID, SELFPAY ==
[2020-01-06 12:07] VITALS: BP 151/133; PULSE 96; RESP 20; TEMP 36.5; O2SAT 97
--- NOTE | 2020-01-06 12:23 | W.ED.GENAD ---
Discharge Plan Disposition Patient Disposition: HOME Condition: Stable Discharge Details Clinical Impression: Headache Primary Care Provider: Eli Ralph ED Provider: Horace Avila Home Meds and New Rx's Prescriptions: New doxycycline hyclate 100 mg tablet 100 mg PO BID Qty: 30 RF: 0 tramadol 50 mg tablet 50 mg PO Q8H PRN (Reason: pain) Qty: 30 RF: 0 Continued folic acid 1 MG tablet 1 mg PO DAILY RF: 0 Prostamen 1 EACH capsule 1 ea PO DAILY RF: 0 glucosamine sulfate 2KCl 1,000 MG tablet 1,000 mg PO DAILY RF: 0 methylprednisolone 4 mg Tablet 4 mg PO QAM RF: 0 Discharge Instructions Additional Instructions: You are being started on doxycycline for possible lyme disease follow up with your primary care provider as scheduled Thursday for reassessment if you feel more ill, have severe worsening pain or fevers return to the emergency department Medical Decision Making 64 yo female with hx of paroxysmal nocturnal hemoglobinuria , OA, raynauds, who comes in with chief complaint of head pain since Thursday that feels similar to prior migraine she had two years ago. HAs had n/v, hasn't checked temperature but has had chills. STates she removed a tick from back of her neck two weeks ago and is unsure how long it was there for. She states she feels better today in terms of the pain. She has normal gait and no deficits on motor or sensation deficits, clear speech, no temporal artery tenderness, CN II-XII intact. No meningismus on exam. Could be tension headache vs migraine but doesn't get them often, will obtain tick panel, obtain esr and crp to screen for giant cell arteritis, no eye pain and normal eye appearance so doubt glaucoma, normal TM's, and has no meningismus so dout supervisor tumblers infection. Will obtain ct and cta to evaluate for possible sdh and aneurysm labs show increase in sed rate as well as crp, otherwise unremarkable lab work. CTA negative per Dr. Francisco. Feels better after compazine but states CT was loud and increased her pain but is tolerable now. STill no menigismus and clinical suspicion for supervisor tumblers infection low, but did offer to perform LP to evaluate for this and she declined at this time after discussing risks/benefits and has capacity to make her own decisions. She also declined starting prednisone for possible giant cell arteritis and would like to f/u with pcp as scheduled for Thursday. She is willing to start doxy for lyme while lab testing is pending. Will d/c and return precautions given Differential Diagnosis Differential Diagnosis: tension headache, encephalitis, aneurysm, sdh Medical Records Medical records reviewed: Yes I reviewed the patient's medical records. Imaging Data Radiologic Study: Attestation: I personally reviewed and interpreted this imaging study as follows: Imaging: CT Scan Radiologist's impression: per dr. francisco no acute findings on CT Lab Data Lab results reviewed: Yes I reviewed the patient's lab results. HPI General Mode of arrival: ambulatory. Date/Time Provider Initiated Documentation: 01/06/20 12:04. Limitations to Documentation: no limitations. Information obtained by: patient. History of Present Illness 64 year old F presents to the emergency department with the chief complaint of headache, described as moderate, and it has been constant. No relieving factors improve symptom(s), No exacerbating factors reported . Patient notes other (nausea). Related Data Home Medications Medication Instructions Recorded Confirmed Prostamen 1 ea PO DAILY 06/13/13 01/06/20 folic acid 1 mg PO DAILY tab-cap 06/13/13 01/06/20 glucosamine sulfate 2KCl 1,000 mg PO DAILY 06/13/13 01/06/20 doxycycline hyclate 100 mg PO BID #30 tab 01/06/20 methylprednisolone 4 mg PO QAM 01/06/20 01/06/20 tramadol 50 mg PO Q8H PRN #30 tab 01/06/20 Previous Rx's Medication Instructions Recorded doxycycline hyclate 100 mg PO BID #30 tab 01/06/20 tramadol 50 mg PO Q8H PRN #30 tab 01/06/20 Allergies Allergy/AdvReac Type Severity Reaction Status Date / Time acetaminophen Allergy Unknown Swelling/Ed Unverified 01/06/20 12:13 lala ibuprofen Allergy Unknown Unverified 01/06/20 12:13 naproxen sodium [From Aleve] Allergy Unknown Swelling/Ed Unverified 01/06/20 12:13 lala Penicillins Allergy Unknown Unverified 01/06/20 12:13 pseudoephedrine Allergy Unknown Unverified 01/06/20 12:13 General Stated Complaint: Headache RAFAL: 3 Review of Systems All systems reviewed & are unremarkable except as noted in HPI and below Constitutional Constitutional: Denies weakness Cardiovascular Cardiovascular: Denies chest pain and Denies dyspnea Respiratory Respiratory: Denies cough and Denies dyspnea Gastrointestinal Gastrointestinal: Denies abdominal pain Genitourinary Genitourinary: Denies dysuria Musculoskeletal Musculoskeletal: Denies joint swelling Neurologic Neurologic: Denies weakness [facility] Medical History (Updated 01/06/20 @ 14:56 by Horace Avila MD) Osteoarthritis Paroxysmal nocturnal hemoglobinuria Raynaud's disease Family History Mother No problems noted. Father No problems noted. Social History Smoking risk assessment performed?: No Exam Const General: no acute distress Orientation: alert HENMT Head: normal to inspection Ears: external ears normal General nose exam: external nose normal Mouth: moist mucous membranes Eyes General: appearance normal, both eyes and all related structures Neck Neck: normal visual inspection Resp Effort & Inspection: normal respiratory effort and able to speak in complete sentences Cardio Rate: regular rate Skin General skin exam: no rashes or lesions noted Neuro General: patient alert and patient oriented x3 Extrem General: normal to inspection Psych Mental Status: mental status grossly normal Course Vital Signs Vital signs: Vital Signs Temperature 36.5 C 01/06/20 12:07 Pulse 96 H 01/06/20 12:07 Respiratory Rate 20 01/06/20 12:07 Blood Pressure 151/133 H 01/06/20 12:07 Pulse Oximetry 97 01/06/20 12:07 Temperature 36.5 C 01/06/20 12:07 Pulse 96 H 01/06/20 12:07 Respiratory Rate 20 01/06/20 12:07 Blood Pressure 151/133 H 01/06/20 12:07 Blood Pressure Position Sitting 01/06/20 12:07 Pulse Oximetry 97 01/06/20 12:07 Oxygen Delivery Method Room Air 01/06/20 12:07 Oxygen Flow Rate 0 01/06/20 12:07
[2020-01-06 12:46] VITALS: BP 173/113; PULSE 82
[2020-01-06] MEDS: Prochlorperazine 10 MG/2 ML VIAL IVP (12:51)
[2020-01-06] MEDS: Normal Saline 1,000 ML 1000 ML IV (12:52)
[2020-01-06 13:01] VITALS: PULSE 76
[2020-01-06 13:06] LABS: Abs Immature Grans 0.02 10^3/uL (0.0-0.06); Absolute Basophil Count 0.02 10^3/uL (0.0-0.2); Absolute Eosinophil Count 0.01 10^3/uL (0.0-0.7); Absolute Lymphocyte Count 0.28 10^3/uL (1.2-3.4); Absolute Monocyte Count 0.25 10^3/uL (0.1-0.8); Absolute Neutrophil Count 3.85 10^3/uL (1.2-6.7); Basophils % 0.5; Eosinophils % 0.2; HCT 39.8 % (36.0-46.0); HGB 12.8 g/dL (11.2-15.7); Immature Grans % 0.5; Lymphocytes % 6.3; MCH 32.2 pg (27.0-33.0); MCHC 32.2 % (32.0-36.0); MCV 100.3 fL (80-95); Monocytes % 5.6; Neutrophils % 86.9; Nucleated RBC 0 %; RBC 3.97 10^6/uL (3.93-5.22); RDW 13.3 % (11.7-14.6); RDW-SD 49.6 fL; WBC 4.43 10^3/uL (4.4-10.8)
[2020-01-06 13:17] LABS: Platelet Count 45 10^3/uL (130-400)
[2020-01-06 13:19] LABS: ALT 47 U/L (14-59); AST 82 U/L (15-37); Albumin 3.7 g/dL (3.4-5.0); Alkaline Phosphatase 97 U/L (46-116); Anion Gap 8.4 mmol/L (3-11); BUN 17 mg/dL (7-18); Bilirubin, Total 1.8 mg/dL (0.2-1.0); C-Reactive Protein 7.78 mg/dL (0.0-0.3); CO2 27.6 mmol/L (21.0-32.0); CREATININE 0.98 mg/dL (0.55-1.02); Calcium 9.6 mg/dL (8.5-10.1); Chloride 99 mmol/L (98-107); Estimated GFR 57.14 (mL/min/1.73m2); Glucose 128 mg/dL (74-106); Magnesium 1.9 mg/dL (1.8-2.4); Potassium 3.6 mmol/L (3.5-5.1); Sodium 135 mmol/L (136-145); Total Protein 7.5 g/dL (6.4-8.2)
[2020-01-06 13:20] VITALS: BP 100/56; PULSE 77
[2020-01-06 13:40] LABS: ESR 56 mm/hr (0-30)
[2020-01-06 13:53] LABS: INR 0.9 (0.9-1.1); PTT Activated 24.2 sec (21.0-31.4); Prothrombin Time 9.4 sec (9.3-11.0)
[2020-01-06] MEDS: Omnipaque 350 MG/ML 100 ML BTL IJ (14:01)
[2020-01-06] MEDS: Normal Saline - Diluent 50 ML VIAL IV (14:02)
[2020-01-06] MEDS: Normal Saline Flush 10 ML SYR IVP (14:02)
--- NOTE | 2020-01-06 14:34 | DI.CT_ITS ---
EXAM: CT BRAIN CTA CLINICAL HISTORY: headache. TECHNIQUE: Imaging Protocol: Axial CT angiography was performed with multi-slice acquisition and mu lti-planar and/or 3D reconstructions. CONTRAST MATERIAL: Intravenous: Omnipaque 350 Contrast volume: 155 cc COMPARISON: No exams were available for comparison FINDINGS: CT HEAD WITHOUT: Ventricles and Extra axial spaces: Normal in size and morphology for the patient's age. Hemorrhage: None. Cerebral parenchyma: Normal. Midline shift: None. Brainstem/Cerebellum: Normal. Calvarium: Normal. Visualized Paranasal sinuses/Mastoids: Clear. CTA HEAD WITH: Internal Carotid Arteries: Petrous: Normal. Cavernous: Normal. Cerebral: Normal. Middle Cerebral Arteries: Right: No aneurysm, occlusion or significant stenosis. Left: No aneurysm, occlusion or significant stenosis. Anterior Cerebral Arteries: Right: No aneurysm, occlusion or significant stenosis. Left: No aneurysm, occlusion or significant stenosis. Posterial Cerebral Arteries: Right: No aneurysm, occlusion or significant stenosis. Left: No aneurysm, occlusion or significant stenosis. Vertebral Arteries: Right: No aneurysm, occlusion or significant stenosis. Left: No aneurysm, occlusion or significant stenosis. Basilar Artery: No aneurysm, occlusion or significant stenosis. IMPRESSION: Normal CT of the head without contrast. Normal CTA examination of the [place]. RADIATION DOSE DELIVERED: 863.76mGy.cm Total DLP 863.76mGy.cm Total DLP DATA REPOSITORY: All CT scans at this facility are submitted to the National Radiology Data Registry (NRDR) Dose Index Registry (DIR) with the [employer] ([employer]). RADIATION OPTIMIZATION: All CT scans at this facility use at least one of these dose optimization te chniques: automated exposure control; mA and/or kV adjustment per patient size (includes targeted exa ms where dose is matched to clinical indication); or iterative reconstruction.
[2020-01-06] MEDS: Doxycycline Hyclate 100 MG CAP PO (14:58)
[2020-01-06] MEDS: traMADol 50 MG TAB PO (14:58)
[2020-01-06 15:24] VITALS: BP 130/90; PULSE 96; RESP 20; TEMP 36.6; O2SAT 98
[2020-01-09 20:23] LABS: B. miyamotoi PCR Negative (Negative); Babesia divergens/MO-1 Negative (Negative); Babesia duncani Negative (Negative); Babesia microti Negative (Negative); Ehrlichia chaffeensis Negative (Negative); Ehrlichia ewingii/canis Negative (Negative); Ehrlichia muris eauclairensis Negative (Negative)
[2020-01-10 08:13] LABS: Anaplasma phagocytophilum Positive (Negative)
[2020-01-12 10:45] LABS: Lyme Ab w Rflx to Lyme Confirm Negative (Negative)
--- NOTE | 2020-01-12 18:13 | NUR.NOTE ---
Nursing Note: Per Dr. Yves Santiago, referral for ANTHONY follow up given to Care Management to fax along with the lab result. Rosalinda griffin
--- NOTE | 2020-01-12 18:52 | CMPROGNOTE_ITS ---
- If Service Date Differs Date of service: 01/12/20 Time of Service: 18:52 Care Management Progress Note Darling is seen in the ED on 01/06/2020 for a headache. 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 At the request of ED provider, CM faxes the results, along with a request for a follow up appointment to Darling Tatum' PCP at [facility] in [place], [place].
== END 2020-01-06 15:28 | disposition home or self-care (01) ==
PROVIDERS: Emergency Provider Emergency Medicine; PCP Family Medicine
DX: R51.9 Headache, unspecified (principal); R11.2 Nausea with vomiting, unspecified; Z20.818 Contact with and (suspected) exposure to other bacterial communicable diseases
CPT/HCPCS: 70496; 80053; 85652; 87798; 96361; 96374; 99285; 83735; 85025; 85610; 85730; 86140; 86618; 99284; J0780; J3490